=== PATIENT | female | born 1990 | race African-American/Black ===

== ENCOUNTER 2017-11-02 01:00 | Emergency (ER) | payer OTHER ==
[~2017-11-02] VITALS: Ht 167.6 cm; Wt 75.0 kg
[2017-11-02 01:51] LABS: BASOPHILS % (AUTO) 0.3 % (0.0-2.0); EOSINOPHILS % (AUTO) 3.2 % (1.0-6.0); HEMATOCRIT 35.9 % (36-46); HEMOGLOBIN 12.3 g/dL (12.0-16.0); LYMPHOCYTES # (AUTO) 1.3 K/uL (1.0-4.8); LYMPHOCYTES % (AUTO) 18.9 % (22.0-44.0); MEAN CORPUSCULAR HEMOGLOBIN 30.1 pg (26.0-34.0); MEAN CORPUSCULAR HGB CONC 34.3 G/dL (31.0-37.0); MEAN CORPUSCULAR VOLUME 88 fL (80-100); MONOCYTES # (AUTO) 0.5 K/uL (0.1-1.0); MONOCYTES % (AUTO) 7.6 % (2.0-9.0); NEUTROPHILS # (AUTO) 4.9 K/uL (1.8-7.7); RED BLOOD CELL COUNT(AUTO) 4.09 MIL/uL (4.00-5.20)
[2017-11-02] MEDS ORDERED: MAG HYDROX/AL HYDROX/SIMETH ES 30 ML SUSPENSION UDCUP PO ONE (02:00)
[2017-11-02] MEDS ORDERED: ACETAMINOPHEN 500 MG TABLET PO ONE (02:00)
[2017-11-02 02:02] LABS: ANION GAP 7 mmol/L (8-16); CALCIUM, TOTAL 9.1 mg/dL (8.8-10.5); CARBON DIOXIDE 28 mmol/L (22-29); CHLORIDE 102 mmol/L (98-107); CREATININE 0.46 mg/dL (0.60-1.30); GLOMERULAR FILTR. RATE CALC > 60 mL/min (>60); GLUCOSE,RANDOM 114 mg/dL (70-110); POTASSIUM 4.1 mmol/L (3.5-5.1); SODIUM SERUM 137 mmol/L (136-145); UREA NITROGEN, BLOOD 4 mg/dL (7-18)
[2017-11-02 02:08] LABS: ALANINE AMINOTRANSFERASE 93 U/L (12-78); ALBUMIN 2.4 g/dL (3.4-5.0); ALKALINE PHOSPHATASE 398 U/L (46-116); ASPARTATE AMINOTRANSFERASE 104 U/L (15-37); TOTAL PROTEIN, SERUM 6.7 g/dL (6.4-8.2)
[2017-11-02 02:16] LABS: LIPASE 78 U/L (73-393)
[2017-11-02 02:24] LABS: PLATELET COUNT (AUTO) 96 K/uL (150-450)
[2017-11-02 04:17] VITALS: BP 127/72
== END 2017-11-02 04:32 | disposition home or self-care (01) ==
LOC: EMS 01:02
DX: O99.62 Diseases of the digestive system complicating childbirth (principal); K80.70 Calculus of gallbladder and bile duct without cholecystitis without obstruction; Z37.9 Outcome of delivery, unspecified; Z3A.00 Weeks of gestation of pregnancy not specified
CPT/HCPCS: 36415; 76700; 80053; 83690; 84703; 85025; 93005; 99285; G0480

== ENCOUNTER 2021-08-04 12:15 | Emergency (ER) | payer SELFPAY ==
[~2021-08-04] VITALS: Ht 162.6 cm; Wt 79.5 kg
[2021-08-04 12:29] VITALS: BP 116/62
== END 2021-08-04 14:12 | disposition home or self-care (01) ==
LOC: EMS 12:17
DX: S93.402A Sprain of unspecified ligament of left ankle, initial encounter (principal); E11.9 Type 2 diabetes mellitus without complications; X58.XXXA Exposure to other specified factors, initial encounter; Y93.01 Activity, walking, marching and hiking; Y92.89 Other specified places as the place of occurrence of the external cause; Y99.8 Other external cause status
CPT/HCPCS: 99284

== ENCOUNTER 2022-02-04 10:24 | Emergency (ER) | payer OTHER ==
[~2022-02-04] VITALS: Ht 165.1 cm; Wt 54.5 kg
[2022-02-04 11:08] VITALS: BP 136/24
== END 2022-02-04 12:45 | disposition home or self-care (01) ==
LOC: EMS 10:24
DX: N94.10 Unspecified dyspareunia (principal); R10.2 Pelvic and perineal pain; E11.9 Type 2 diabetes mellitus without complications
CPT/HCPCS: 81002; 99284; Z7502

== ENCOUNTER 2023-03-29 16:46 | Emergency (ER) | payer OTHER ==
[~2023-03-29] VITALS: Ht 165.1 cm; Wt 70.5 kg
[2023-03-29 16:52] VITALS: TEMP 98.3
[2023-03-29] MEDS ORDERED: ACET-3385 PO ×2 (17:14→17:36)
[2023-03-29] MEDS ORDERED: CEPH-558 PO ×2 (17:14→17:36)
[2023-03-29] MEDS ORDERED: SULF-261 PO ×2 (17:14→17:36)
[2023-03-29 17:15] VITALS: BP 114/75; PULSE 87; RESP 16
== END 2023-03-29 17:37 | disposition home or self-care (01) ==
LOC: EMS 16:46
DX: N61.0 Mastitis without abscess (principal); E11.65 Type 2 diabetes mellitus with hyperglycemia; Z98.890 Other specified postprocedural states
CPT/HCPCS: 82962; 93005; 99283

== ENCOUNTER 2024-04-20 11:51 | Emergency (ER) | payer OTHER ==
[~2024-04-20] VITALS: Ht 172.7 cm; Wt 85.0 kg
[~2024-04-20 11:51] MED LIST: ACET-3385 PO; CEPH-558 PO; SULF-261 PO
[2024-04-20 12:04] VITALS: BP 103/65; PULSE 94; RESP 14; TEMP 98.1
[2024-04-20 12:26] LABS: APPEARANCE,URINE CLEAR (CLEAR); BILIRUBIN,URINE NEGATIVE (NEGATIVE); COLOR,URINE YELLOW (YELLOW); GLUCOSE, URINE (UA) NEGATIVE (NEGATIVE); KETONES,URINE NEGATIVE (NEGATIVE); LEUKOCYTE ESTERASE ,URINE SMALL (NEGATIVE); NITRATE,URINE NEGATIVE (NEGATIVE); OCCULT BLOOD,URINE NEGATIVE (NEGATIVE); PROTEIN,URINE NEGATIVE (NEGATIVE); SPECIFIC GRAVITIY, URINE 1.018 (1.003-1.030); UROBILINOGEN,URINE <=1.0 mg/dL (<=1.0)
[2024-04-20 12:36] LABS: BACTERIA,URINE Moderate /HPF (None Seen); RBC,URINE None Seen /HPF (0-2)
[2024-04-20 12:37] LABS: SQUAMOUS EPITHELIAL CELL,UR Moderate /LPF (None Seen)
[2024-04-20] MEDS ORDERED: INSU100I26 SQ (13:03)
[2024-04-20] MEDS ORDERED: METF-446 PO (13:03)
[2024-04-20] MEDS ORDERED: CHOL20002 PO (13:03)
[2024-04-20] MEDS ORDERED: DAPA5TAB PO (13:03)
[2024-04-20] MEDS ORDERED: DULA0.75 SQ (13:03)
[2024-04-20] MEDS: CEPHALEXIN MONOHYDRATE 500 MG CAPSULE PO ONE (13:19)
[2024-04-20] MEDS: ACETAMINOPHEN 500 MG TABLET PO ONE (13:20)
[2024-04-20] MEDS ORDERED: ACET-3385 PO (14:16)
[2024-04-20] MEDS ORDERED: CEPH-558 PO (14:16)
[2024-04-20] MEDS: FLUCONAZOLE 150 MG TABLET PO ONE (14:40)
== END 2024-04-20 14:48 | disposition home or self-care (01) ==
LOC: EMS 11:54
DX: N12 Tubulo-interstitial nephritis, not specified as acute or chronic (principal); E11.9 Type 2 diabetes mellitus without complications; Z98.890 Other specified postprocedural states
CPT/HCPCS: 81001; 84703; 87086; 87186; 99284; Z7502; Z7610

== ENCOUNTER 2024-11-18 08:28 | Emergency (ER) | payer OTHER ==
[~2024-11-18] VITALS: Ht 162.6 cm; Wt 80.0 kg
[~2024-11-18 08:28] MED LIST changes: +CHOL20002 PO; +DAPA5TAB PO; +DULA0.75 SQ; +INSU100I26 SQ; +METF-446 PO; -SULF-261 PO
[2024-11-18 08:31] VITALS: TEMP 97.9
[2024-11-18] MEDS: SODIUM CHLORIDE 0.9% 1,000 ML IV ONE (09:13)
[2024-11-18] MEDS: ONDANSETRON HCL 4 MG/2 ML VIAL IVP ONE (09:13)
[2024-11-18 09:19] LABS: APPEARANCE,URINE CLEAR (CLEAR); BILIRUBIN,URINE NEGATIVE (NEGATIVE); COLOR,URINE LIGHT YELLOW (YELLOW); GLUCOSE, URINE (UA) >=1000 mg/dL (NEGATIVE); KETONES,URINE NEGATIVE (NEGATIVE); LEUKOCYTE ESTERASE ,URINE TRACE (NEGATIVE); NITRATE,URINE NEGATIVE (NEGATIVE); OCCULT BLOOD,URINE NEGATIVE (NEGATIVE); PROTEIN,URINE NEGATIVE (NEGATIVE); SPECIFIC GRAVITIY, URINE 1.018 (1.003-1.030); UROBILINOGEN,URINE <=1.0 mg/dL (<=1.0)
[2024-11-18 09:23] LABS: BACTERIA,URINE None Seen /HPF (None Seen); RBC,URINE None Seen /HPF (0-2); WBC,URINE 0-2 /HPF (0-5)
[2024-11-18 09:24] LABS: ANION GAP 4 mmol/L (8-16); CALCIUM, TOTAL 9.2 mg/dL (8.8-10.5); CARBON DIOXIDE 32 mmol/L (22-29); CHLORIDE 101 mmol/L (98-107); CREATININE 0.51 mg/dL (0.60-1.30); GLOMERULAR FILTR. RATE CALC > 60 mL/min (>60); GLUCOSE,RANDOM 260 mg/dL (70-110); POTASSIUM 3.6 mmol/L (3.5-5.1); SODIUM SERUM 137 mmol/L (136-145); UREA NITROGEN, BLOOD 5 mg/dL (7-18)
[2024-11-18 09:24] LABS: SQUAMOUS EPITHELIAL CELL,UR Few /LPF (None Seen)
[2024-11-18 09:25] LABS: BASOPHILS % (AUTO) 0.5 % (0.0-2.0); EOSINOPHILS % (AUTO) 2.3 % (1.0-6.0); HEMOGLOBIN 13.9 g/dL (12.0-16.0); LYMPHOCYTES # (AUTO) 2.1 K/uL (1.0-4.8); LYMPHOCYTES % (AUTO) 44.6 % (22.0-44.0); MEAN CORPUSCULAR HEMOGLOBIN 29.5 pg (26.0-34.0); MEAN CORPUSCULAR VOLUME 87 fL (80-100); MONOCYTES # (AUTO) 0.3 K/uL (0.1-1.0); MONOCYTES % (AUTO) 7.4 % (2.0-9.0); NEUTROPHILS # (AUTO) 2.1 K/uL (1.8-7.7); NEUTROPHILS % (AUTO) 45.2 % (40.0-70.0); PLATELET COUNT (AUTO) 226 K/uL (150-450); RED BLOOD CELL COUNT(AUTO) 4.72 MIL/uL (4.00-5.20); RED CELL DISTRIBUTION WIDTH 13.2 % (11.5-14.5); WHITE BLOOD COUNT (AUTO) 4.7 K/uL (4.5-11.0)
[2024-11-18] MEDS: ACETAMINOPHEN 500 MG TABLET PO ONE (09:42)
[2024-11-18 11:00] VITALS: BP 115/68; PULSE 72; RESP 18; O2SAT 100
[2024-11-18] MEDS ORDERED: ACET-66 PO (11:02)
[2024-11-18 15:16] LABS: GLUCOMETER DEV NAME(LOC) ER.7; GLUCOSE,POINT OF CARE 233 MG/DL (70-110)
== END 2024-11-18 11:17 | disposition home or self-care (01) ==
LOC: EMS 08:41
DX: M54.9 Dorsalgia, unspecified (principal); E11.65 Type 2 diabetes mellitus with hyperglycemia; R51.9 Headache, unspecified; R10.9 Unspecified abdominal pain; Z79.84 Long term (current) use of oral hypoglycemic drugs
CPT/HCPCS: 99283; 96360; 80048; 81001; 82009; 82962 ×2; 84703; 85025; 36415; J2405; J7030